=== PATIENT | male | born 1945 | race Caucasian/White ===

== ENCOUNTER → 2018-06-17 | Outpatient (CLI) | payer MEDICARE ==
[~2018-06-17] MED LIST: ALFUZOSIN HCL10 MG PO; ALLER-TEC10 MG PO; ASPIRIN81 M1 PO; ATORVASTATIN CA20 MG PO; BIOTIN2500 MCG PO; CO Q-10200 MG PO; FINASTERIDE5 MG PO; LISINOPRIL20 MG PO; OMEPRAZOLE20 MG PO; SIMVASTATIN40 MG PO; TESTOSTERO200 MG/1 M INJ
--- NOTE | 2018-06-17 12:32 | Diagnostic Imaging Report ---
EXAM: XR CHEST 2 VIEWS DATE: 06/17/2018 12:02 PM INDICATION: Preoperative for cystostomy. COMPARISON: 10/22/2012 FINDINGS: Lines and Tubes: None Heart and Mediastinum: No acute cardiomediastinal findings. Lungs and Pleura: No significant pleural effusion, pneumothorax, or focal consolidation. Bones and Soft Tissues: No acute findings. IMPRESSION: 1. No acute cardiopulmonary findings. Signed by: Dr. Jordan Blackwell MD on 06/17/2018 12:29 PM
== END ==
LOC: RAD 11:48
DX: Z01.818 Encounter for other preprocedural examination (principal); N28.89 Other specified disorders of kidney and ureter
CPT/HCPCS: 71046; 93005

== ENCOUNTER → 2019-10-16 | Day surgery (SDC) | payer MEDICARE ==
[2019-10-10 11:58] LABS: BASOPHILS # (AUTO) 0.1 (0.0-0.1); BASOPHILS % 0.7 % (0.0-1.0); EOSINOPHILS # (AUTO) 0.2 (0.0-0.4); EOSINOPHILS % 2.4 % (0.0-6.0); HEMATOCRIT 37.8 % (38.2-49.6); HEMOGLOBIN 12.8 g/dL (14.0-18.0); LYMPHOCYTES % 28.7 % (18.0-39.1); MEAN CORPUSCULAR HEMOGLOBIN 32.1 pg (28-32); MEAN CORPUSCULAR HGB CONC 33.9 g/dL (31-35); MEAN CORPUSCULAR VOLUME 94.7 fL (81-99); MONOCYTES # (AUTO) 0.8 (0.2-0.8); MONOCYTES % 11.4 % (4.4-11.3); NEUTROPHILS % 56.4 % (38.7-80.0); PLATELET COUNT 230 x10e3/uL (140-360); RED BLOOD COUNT 3.99 x10e6/uL (4.3-5.7); RED CELL DISTRIBUTION WIDTH 12.4 % (11.7-14.4)
[~2019-10-16] MED LIST changes: +GLUCAGON FOR INJ 1 MG VIAL ONE; +HYOSCYAMINE 0.125 MG TAB ONE; +IRON PO; +LIDOCAINE HCL 2% LOCAL INJ 5 ML SDV VIAL INJ ONE; +MAGNESIUM PO; +MENS MULTIVITAMIN PO; +METOCLOPRAMIDE HCL 10 MG/2ML VIAL ONE; +PROBIOTIC & AC1 EACH PO; +PROPOFOL IV EMULSION 10 MG/ML 50 ML VIAL ONE; +SIMETHICONE 40 MG/0.6 ML BTL ONE
--- OUTSIDE RECORDS SUMMARY | 2019-10-16 06:03 | XMS REPORT ---
Author [facility] Address Unknown Phone Unavailable Care Team Providers Care Occupational Therapy Aides Teacher Name Role Phone PEÑA DIAZ Unavailable Unavailable Payers Payer Name Policy Type Policy Number Effective Date Expiration Date Problems This patient has no known problems. Allergies, Adverse Reactions, Alerts This patient has no known allergies or adverse reactions. Medications This patient has no known medications. Results Test Description Test Time Test Comments Text Results Atomic Results Result Comments CHEST 2 VIEWS 2018-06-17 12:28:00 [place] [address] Patient Name: JUSTINE TOBIAS MR #: [id number] : 1945 Age/Sex: 72/M Req #: [id number] Adm Physician: Ordered by: PEÑA DIAZ MD Report #: [id number] Location: [facility] Room/Bed: Procedure: [id number] DX/CHEST 2 VIEWS Exam Date: 06/17/18 Exam Time: 1211 REPORT STATUS: Signed EXAM: XR CHEST 2 VIEWS DATE: 06/17/2018 12:02 PM IND ICATION: Preoperative for cystostomy. COMPARISON: 10/22/2012 FINDINGS: Lines and Tubes: None Heart and Mediastinum: No acute cardiomediastinal findings. Lungs and Pleura: No significant pleural effusion, pneumothorax, or focal consolidation. Bones and Soft Tissues: No acute findings. IMPRESSION: 1. No acute cardiopulmonary findings. Signed by: Dr. Jordan Blackwell MD on 06/17/2018 12:29 PM Dictated By: JORDAN BLACKWELL MD 1229 Transcribed By: IVONNE on 06/17/189 COPY TO: PEÑA DIAZ MD
[2019-10-16 09:37] VITALS: BP 122/72
--- NOTE | 2019-10-16 13:35 | Operative Report ---
DATE OF PROCEDURE: 10/16/2019 SURGEON: Miguel Katz MD PROCEDURES: EGD with biopsies and a colonoscopy with polypectomy. INDICATIONS FOR EGD: History of Mckinney esophagus. INDICATIONS FOR COLONOSCOPY: Surveillance colonoscopy, personal history of colon polyps. MEDICATIONS: The patient was done under MAC, please see anesthesiologist's note. PROCEDURE IN DETAIL: With the patient in the left lateral decubitus position, a flexible fiberoptic Olympus gastroscope was introduced into the esophagus under direct visualization without any difficulty. There was some patchy erythema noted in distal esophagus. A short segment of Mckinney epithelium was noted to extend approximately 3 cm from the GE junction, but appears to be partially reepithelialized. Four quadrant biopsies were obtained every 2 cm segment. The scope was then advanced with ease into the stomach traversing a small hiatal hernia. Mucosa overlying the antrum and the body revealed some patchy erythema and low-grade edema, and biopsies were obtained and sent to stain for H. pylori. Pylorus was of normal contour and shape, was intubated with ease and the scope was advanced all the way to the second portion of the duodenum. The scope was then withdrawn slowly, mucosa overlying the proximal second portion and duodenal bulb appeared to be within normal limits. The scope was then withdrawn back into the stomach and retroflexed, and the mucosa overlying the fundus and the cardia appeared to be within normal limits. The scope was then straightened out. The stomach was decompressed. The scope was subsequently withdrawn. The patient tolerated the procedure well. IMPRESSION: 1. 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 Extending 3 cm proximally from the GE junction. Four quadrant biopsies to 2 cm intervals were obtained. 2. Small hiatal hernia. 3. Gastritis, biopsied, biopsies sent to stain for Helicobacter pylori. PLAN: Follow up histology. Continue omeprazole 40 mg 1 p.o. q.a.m. before meals. The patient was then turned around and after adequate lubrication of the anal canal, a flexible fiberoptic Olympus colonoscope was inserted into the rectum with ease and advanced all the way to the cecum. It was then withdrawn slowly, mucosa overlying the cecum, ascending, and transverse appeared to be within normal limits. Diverticular disease was noted to involve the distal descending and the sigmoid colon. One minute polyp was hot biopsied from the sigmoid. The rectum grossly appeared to be within normal limits. The scope was then retroflexed into the distal rectum and small internal hemorrhoids were noted, none of which was actively bleeding. The scope was then straightened out, it was subsequently withdrawn, and the patient tolerated the procedure well. IMPRESSION: 1. Diverticulosis. 2. Sigmoid colon polyp, hot biopsied. 3. Internal hemorrhoids, none actively bleeding. PLAN: Follow up histology. Initiate high-fiber, low-fat diet. Initiate high-fiber supplement. The patient might benefit from a followup colonoscopy in 5 years. Miguel Katz MD [facility] [place]/AUDIL /[id number] cc: Garland Katz MD
== END | disposition home or self-care (01) ==
LOC: OR 06:00
PROVIDERS: ATTEND Internal Medicine Gastroenterology
DX: K22.70 Barrett's esophagus without dysplasia (principal); K63.5 Polyp of colon; K29.70 Gastritis, unspecified, without bleeding; K31.89 Other diseases of stomach and duodenum; K44.9 Diaphragmatic hernia without obstruction or gangrene; K57.30 Diverticulosis of large intestine without perforation or abscess without bleeding; K64.8 Other hemorrhoids; I10 Essential (primary) hypertension; R73.03 Prediabetes; F41.9 Anxiety disorder, unspecified; Z01.810 Encounter for preprocedural cardiovascular examination; Z01.812 Encounter for preprocedural laboratory examination; Z79.82 Long term (current) use of aspirin; Z90.5 Acquired absence of kidney; Z85.528 Personal history of other malignant neoplasm of kidney
CPT/HCPCS: 36415; 43239; 45384; 85025; 88305; 88312; 93005; J1610; J2001; J2704; J2765; 45378

== ENCOUNTER → 2020-06-10 | Day surgery (SDC) | payer MEDICARE, OTHER ==
[2020-06-07 12:44] LABS: BASOPHILS # (AUTO) 0.1 (0.0-0.1); BASOPHILS % 0.6 % (0.0-1.0); EOSINOPHILS # (AUTO) 0.2 (0.0-0.4); HEMOGLOBIN 13.3 g/dL (14.0-18.0); LYMPHOCYTES # (AUTO) 1.7 (1.0-3.2); LYMPHOCYTES % 22.1 % (18.0-39.1); MEAN CORPUSCULAR HEMOGLOBIN 32.4 pg (28-32); MEAN CORPUSCULAR HGB CONC 34.1 g/dL (31-35); MEAN CORPUSCULAR VOLUME 94.9 fL (81-99); MONOCYTES # (AUTO) 0.8 (0.2-0.8); MONOCYTES % 9.7 % (4.4-11.3); NEUTROPHILS # (AUTO) 5.1 (2.1-6.9); NEUTROPHILS % 65.1 % (38.7-80.0); PLATELET COUNT 201 x10e3/uL (140-360); RED BLOOD COUNT 4.11 x10e6/uL (4.3-5.7); RED CELL DISTRIBUTION WIDTH 12.5 % (11.7-14.4)
[2020-06-07 13:06] LABS: ANION GAP 11.9 mmol/L (8-16); CALCIUM 8.8 mg/dL (8.4-10.2); CREATININE, SERUM 1.69 mg/dL (0.72-1.25); POTASSIUM 4.9 mmol/L (3.5-5.1)
--- NOTE | 2020-06-07 13:29 | Diagnostic Imaging Report ---
Chest, 2 views, 06/07/2020. History: Preop, carpal tunnel surgery. Comparison: None available. Findings: The cardiomediastinal silhouette and pulmonary vasculature are within normal limits. The lungs are clear without evidence of consolidation or pleural effusion. Degenerative changes are present within the thoracic spine. There are no acute osseous or soft tissue abnormalities. Impression: No acute cardiopulmonary abnormality. Signed by: Ze Ardon on 06/07/2020 1:26 PM
[~2020-06-10] MED LIST changes: +BUPIVACAINE HCL 0.5% INJ 30 ML VIAL INJ ONE; +CEFAZOLIN SOD 1 GM/NS 50ML 50 ML IV ONE; +FENTANYL CITRATE/PF 100MCG/2 ML INJ ONE; +FLOMAX0.4 MG PO; -GLUCAGON FOR INJ 1 MG VIAL ONE; -HYOSCYAMINE 0.125 MG TAB ONE; -METOCLOPRAMIDE HCL 10 MG/2ML VIAL ONE; +MUPIROCIN 2% OINT 22 GM TUBE ONE; +ONDANSETRON HCL INJ 2MG/ML 2ML 2 MG/ML VIAL ONE; +PROPOFOL IV EMULSION 10 MG/ML 20 ML VIAL ONE; -PROPOFOL IV EMULSION 10 MG/ML 50 ML VIAL ONE; +SEVOFLURANE INHAL SOLN 250 ML PEN BTL ONE; -SIMETHICONE 40 MG/0.6 ML BTL ONE; +ZINC SULFATE220 M1 PO; +ZYRTEC10 M3 PO
[2020-06-10 08:25] VITALS: BP 127/65
--- NOTE | 2020-06-10 10:40 | Operative Report ---
DATE OF PROCEDURE: 06/10/2020 SURGEON: Tobi Pedroza MD PREOPERATIVE DIAGNOSIS: Right carpal tunnel syndrome. POSTOPERATIVE DIAGNOSES: 1. Right carpal tunnel syndrome. 2. Flexor tenosynovitis, right wrist. PROCEDURES: 1. Right open carpal tunnel release. 2. Flexor tenosynovectomy, right wrist. ANESTHESIA: General. HISTORY: The patient is a 74-year-old with EMG-proven right carpal tunnel syndrome. Risks, benefits and alternatives of treatment were discussed with the patient. The patient is prepared to undergo the procedure as outlined. DESCRIPTION OF PROCEDURE: The patient was brought to the operating theater. After the induction of adequate general inhalation anesthesia, the patient was prepped and draped in the supine position. A time out was performed by the entire operating room team. A 2.5 cm incision was marked out in the intrathenar space. The right upper extremity was exsanguinated, and a tourniquet was inflated to a pressure of 250 mmHg. The incision was made through the skin and subcutaneous tissues and all venous tributaries were controlled with bipolar cautery. The incision was deepened through the palmar fascia until the transverse carpal ligament was identified. The ligament was sharply sectioned, taking care to protect and preserve the median nerve underlying it. After the complete width of the ligament had been transected, the distal volar forearm fascia was divided under direct view. Proliferative flexor tenosynovium was noticed to encompass the median nerve and this was radically excised. After performing this maneuver, the nerve was noted to lie adequately decompressed. The wound was copiously irrigated with bacteriostatic saline, closed with 5-0 nylon in an interrupted horizontal mattress fashion. A Marcaine field block was performed at the operative site. Tourniquet was deflated. All of the fingers pinked up nicely and a sterile bulking conforming bandage was applied to the hand and the wrist. A fiberglass splint was fashioned to maintain the wrist in a modest amount of extension. This was held in place with a loosely wrapped Pa wrap. The patient tolerated the procedure well and was brought to the recovery room in satisfactory condition and discharged with a postoperative instruction sheet as well as a followup appointment. Tobi Pedroza MD ER/MODL /[id number]
== END | disposition home or self-care (01) ==
LOC: OR 05:41
PROVIDERS: ATTEND Plastic Surgery
DX: G56.01 Carpal tunnel syndrome, right upper limb (principal); M65.821 Other synovitis and tenosynovitis, right upper arm; I10 Essential (primary) hypertension; E11.9 Type 2 diabetes mellitus without complications; E78.00 Pure hypercholesterolemia, unspecified; Z01.810 Encounter for preprocedural cardiovascular examination; Z01.812 Encounter for preprocedural laboratory examination; Z01.818 Encounter for other preprocedural examination; Z11.59 Encounter for screening for other viral diseases
CPT/HCPCS: 25115; 36415; 64721; 71046; 80048; 85025; 93005; J0690; J2001; J2405; J2704; J3010; U0002

== ENCOUNTER → 2020-10-07 | Day surgery (SDC) | payer MEDICARE ==
[2020-10-04 11:20] LABS: BASOPHILS % 0.5 % (0.0-1.0); EOSINOPHILS # (AUTO) 0.2 (0.0-0.4); EOSINOPHILS % 1.8 % (0.0-6.0); HEMATOCRIT 40.1 % (38.2-49.6); HEMOGLOBIN 13.6 g/dL (14.0-18.0); LYMPHOCYTES # (AUTO) 1.9 (1.0-3.2); LYMPHOCYTES % 22.3 % (18.0-39.1); MEAN CORPUSCULAR HEMOGLOBIN 32.3 pg (28-32); MEAN CORPUSCULAR HGB CONC 33.9 g/dL (31-35); MEAN CORPUSCULAR VOLUME 95.2 fL (81-99); MONOCYTES # (AUTO) 0.9 (0.2-0.8); MONOCYTES % 10.1 % (4.4-11.3); NEUTROPHILS # (AUTO) 5.6 (2.1-6.9); NEUTROPHILS % 64.8 % (38.7-80.0); PLATELET COUNT 227 x10e3/uL (140-360); RED BLOOD COUNT 4.21 x10e6/uL (4.3-5.7); RED CELL DISTRIBUTION WIDTH 12.4 % (11.7-14.4)
[2020-10-04 11:40] LABS: ANION GAP 14.3 mmol/L (8-16); CALCIUM 8.7 mg/dL (8.4-10.2); CREATININE, SERUM 1.78 mg/dL (0.72-1.25); POTASSIUM 4.3 mmol/L (3.5-5.1)
[~2020-10-07] MED LIST changes: +BUPIVACAINE HCL 0.5% 10ML MPF VIAL INJ ONE; -BUPIVACAINE HCL 0.5% INJ 30 ML VIAL INJ ONE; -FENTANYL CITRATE/PF 100MCG/2 ML INJ ONE; -LIDOCAINE HCL 2% LOCAL INJ 5 ML SDV VIAL INJ ONE; -ONDANSETRON HCL INJ 2MG/ML 2ML 2 MG/ML VIAL ONE; -PROPOFOL IV EMULSION 10 MG/ML 20 ML VIAL ONE; -SEVOFLURANE INHAL SOLN 250 ML PEN BTL ONE; +TYLENOL # 31 EA PO
[2020-10-07 08:20] VITALS: BP 128/85
== END | disposition home or self-care (01) ==
LOC: OR 05:38
PROVIDERS: ATTEND Plastic Surgery
DX: G56.02 Carpal tunnel syndrome, left upper limb (principal); M65.832 Other synovitis and tenosynovitis, left forearm; C64.9 Malignant neoplasm of unspecified kidney, except renal pelvis; E11.9 Type 2 diabetes mellitus without complications; N28.9 Disorder of kidney and ureter, unspecified; Z01.812 Encounter for preprocedural laboratory examination; Z20.822 Contact with and (suspected) exposure to COVID-19
CPT/HCPCS: 25115; 36415; 80048; 85025; J0690; U0002